=== PATIENT | female | born 1985 | race Caucasian/White ===

== ENCOUNTER 2017-06-06 18:02 | Emergency (ER) | payer SELFPAY ==
[~2017-06-06] VITALS: Ht 170.2 cm; Wt 104.3 kg
[~2017-06-06 18:02] MED LIST: ANXIETY MED PO; FERR325T58 PO; PARO20TA3 PO
[2017-06-06 19:05] VITALS: BP 154/85
[2017-06-06] MEDS ORDERED: NAPR500T8 PO (20:34)
[2017-06-06] MEDS ORDERED: PROAIR RESPICL90 MCG IH (20:34)
[2017-06-06] MEDS ORDERED: BENZ100C PO (20:34)
[2017-06-06] MEDS ORDERED: PRED50TA PO (20:34)
[2017-06-06] MEDS ORDERED: ACET-704 PO (20:34)
[2017-06-06] MEDS ORDERED: AMOX1TAB61 PO (20:34)
--- NOTE | 2017-06-06 20:34 | PHYS DOC ---
Past Medical History Past Medical History: Anxiety, Asthma, Depression, Other Additional Past Medical Histor: GESTATIONAL HYPERTENSION Past Surgical History: , Tonsillectomy Additional Past Surgical Histo: BILATERAL HIP SURGERY, left foot SX Alcohol Use: None Drug Use: None Adult General Chief Complaint Chief Complaint: SORE THROAT HPI HPI Patient is a 31 year old female with a history of anxiety asthma and depression who presents today with a productive cough, nasal congestion, sore throat, for 2 weeks. Patient denies any fever. Patient denies smoking. Review of Systems Review of Systems Constitutional:see HPI Eyes: Denies change in visual acuity, redness, or eye pain [] HENT: nasal congestion and sore throat [] Respiratory: cough Cardiovascular: No additional information not addressed in HPI [] GI: Denies abdominal pain, nausea, vomiting, bloody stools or diarrhea [] : Denies dysuria or hematuria [] Musculoskeletal: Denies back pain or joint pain [] Integument: Denies rash or skin lesions [] Neurologic: Denies headache, focal weakness or sensory changes [] Allergies Allergies Allergies Coded Allergies Type Severity Reaction Last Updated Verified iodine Allergy Intermediate swelling 11/02/15 Yes shellfish derived Allergy Intermediate swelling 11/02/15 Yes Physical Exam Physical Exam Constitutional: Well developed, well nourished, no acute distress, non-toxic appearance. [] HENT: Normocephalic, atraumatic, bilateral external ears normal, oropharynx moist, no oral exudates, patient is congested nasally. Bilateral nasal to venous erythematous and boggy. Eyes: PERRLA, EOMI, conjunctiva normal, no discharge. [] Neck: Normal range of motion, no tenderness, supple, no stridor. [] Cardiovascular:Heart rate regular rhythm, no murmur [] Lungs & Thorax: Bilateral breath sounds clear to auscultation [] Abdomen: Bowel sounds normal, soft, no tenderness, no masses, no pulsatile masses. [] Skin: Warm, dry, no erythema, no rash. [] Back: No tenderness, no CVA tenderness. [] Extremities: No tenderness, no cyanosis, no clubbing, ROM intact, no edema. [] Neurologic: Alert and oriented X 3, normal motor function, normal sensory function, no focal deficits noted. [] Psychologic: Affect normal, judgement normal, mood normal. [] Current Patient Data Vital Signs Vital Signs Date Time Temp Pulse Resp B/P (MAP) Pulse Ox O2 Delivery O2 Flow Rate FiO2 06/06/17 19:05 98.3 108 22 97 Room Air 98.3 EKG EKG [] Radiology/Procedures Radiology/Procedures [] Course & Med Decision Making Course & Med Decision Making Pertinent Labs and Imaging studies reviewed. (See chart for details) Patient has acute sinusitis, pharyngitis and bronchitis. Discharged with Augmentin, prednisone, albuterol inhaler, Tessalon Perles, naproxen and Tylenol 3. Follow-up with the PCP in 1-2 weeks. Dragon Disclaimer Dragon Disclaimer This electronic medical record was generated, in whole or in part, using a voice recognition dictation system. Departure Departure Impression: Primary Impression: Bronchitis, acute Additional Impressions: Sinusitis Pharyngitis, acute Disposition: 01 HOME, SELF-CARE Condition: STABLE Referrals: NIESHA CRANDALL (PCP) Follow-up with your doctor in 1-2 weeks Patient Instructions: Acute Bronchitis, Sinusitis, Viral and Bacterial Pharyngitis Additional Instructions: You were seen for acute sinusitis, pharyngitis and bronchitis. Complete your antibiotics. Take the rest of the prescribed medications as ordered Scripts Naproxen (NAPROXEN) 500 Mg Tablet.dr 1 TAB PO BID, #60 TAB 2 Refills Prov: BENTLEY DOUGHERTY APRN 06/06/17 Acetaminophen With Codeine (TYLENOL WITH CODEINE #3 TABLET) 1 Each Tablet 1 TAB PO PRN Q6HRS Y for PAIN, #20 TAB Prov: BENTLEY DOUGHERTY APRN 06/06/17 Prednisone (PREDNISONE) 50 Mg Tablet 1 TAB PO DAILY, #5 TAB Prov: BENTLEY DOUGHERTY APRN 06/06/17 Albuterol Sulfate (Proair Respiclick) 90 Mcg Aer.pow.ba 1 PUFF IH PRN Q6HRS Y for SHORTNESS OF BREATH, #1 INHALER Prov: BENTLEY DOUGHERTY APRN 06/06/17 Benzonatate (TESSALON PERLE) 100 Mg Capsule 1 CAP PO TID, #30 CAP Prov: BENTLEY DOUGHERTY APRN 06/06/17 Amoxicillin/Potassium Clav (AUGMENTIN 875-125 TABLET) 1 Each Tablet 1 TAB PO BID, #20 TAB Prov: BENTLEY DOUGHERTY APRN 06/06/17 Problem Qualifiers Primary Impression: Bronchitis, acute Bronchitis organism: unspecified organism Qualified Codes: J20.9 - Acute bronchitis, unspecified Additional Impressions: Sinusitis Sinusitis location: maxillary Chronicity: acute Recurrence: non-recurrent Qualified Codes: J01.00 - Acute maxillary sinusitis, unspecified Pharyngitis, acute Pharyngitis/tonsillitis etiology: unspecified etiology Qualified Codes: J02.9 - Acute pharyngitis, unspecified BENTLEY DOUGHERTY [employer] Jun 06, 2017 20:34
[2017-06-07 09:15] LABS: NEGATIVE OBC STREP NEG; POSITIVE OBC STREP POS
== END 2017-06-06 20:37 | disposition home or self-care (01) ==
LOC: ER 18:02
DX: J20.9 Acute bronchitis, unspecified (principal); J01.00 Acute maxillary sinusitis, unspecified; J45.909 Unspecified asthma, uncomplicated; F41.9 Anxiety disorder, unspecified; Z91.041 Radiographic dye allergy status; Z91.013 Allergy to seafood
CPT/HCPCS: 87070; 87880; 99283

== ENCOUNTER 2017-06-30 22:05 | Emergency (ER) | payer SELFPAY ==
[~2017-06-30 22:05] MED LIST changes: +ACET-704 PO; +AMOX1TAB61 PO; +BENZ100C PO; +NAPR500T8 PO; +PRED50TA PO; +PROAIR RESPICL90 MCG IH
[2017-06-30 22:10] VITALS: BP 178/97
[2017-06-30] MEDS ORDERED: AMOX500T PO (22:28)
[2017-06-30] MEDS ORDERED: DICL50TA4 PO (22:28)
[2017-06-30] MEDS ORDERED: ACET-704 PO (22:28)
--- NOTE | 2017-06-30 22:28 | PHYS DOC ---
Past Medical History Past Medical History: Anxiety, Asthma, Depression, Other Additional Past Medical Histor: GESTATIONAL HYPERTENSION Past Surgical History: , Tonsillectomy Additional Past Surgical Histo: BILATERAL HIP SURGERY, left foot SX Alcohol Use: None Drug Use: None Adult General Chief Complaint Chief Complaint: TOOTH ACHE OR PAIN HPI HPI Patient is a 31 year old female who presents with left upper jaw dental pain that began 3 days ago after she broke her tooth. Patient states she called her dentist and she cannot get in for 1 month. Patient denies any fever. Review of Systems Review of Systems Constitutional: Denies fever or chills [] HENT: left upper jaw dental pain Musculoskeletal: Denies back pain or joint pain [] Integument: Denies rash or skin lesions [] Neurologic: Denies headache, focal weakness or sensory changes [] Current Medications Current Medications Current Medications Medications (Trade) Dose Ordered Sig/Elaina Start Time Stop Time Status Last Admin Dose Admin Morphine Sulfate 5 mg 1X ONCE 06/30/17 23:00 06/30/17 23:01 06/30/17 22:32 5 MG Allergies Allergies Allergies Coded Allergies Type Severity Reaction Last Updated Verified iodine Allergy Intermediate swelling 11/02/15 Yes shellfish derived Allergy Intermediate swelling 11/02/15 Yes Physical Exam Physical Exam Constitutional: Well developed, well nourished, no acute distress, non-toxic appearance. [] HENT: Normocephalic, atraumatic, bilateral external ears normal, oropharynx moist, no oral exudates, nose normal. [] Scattered infected dental caries noted throughout. Tooth of concern approximately #17 is broken and decayed. No gum erythema or swelling. Skin: Warm, dry, no erythema, no rash. [] Back: No tenderness, no CVA tenderness. [] Extremities: No tenderness, no cyanosis, no clubbing, ROM intact, no edema. [] Neurologic: Alert and oriented X 3, normal motor function, normal sensory function, no focal deficits noted. [] Psychologic: Affect normal, judgement normal, mood normal. [] Current Patient Data Vital Signs Vital Signs Date Time Temp Pulse Resp B/P (MAP) Pulse Ox O2 Delivery O2 Flow Rate FiO2 06/30/17 22:32 Room Air 06/30/17 22:10 98.5 77 20 99 98.5 EKG EKG [] Radiology/Procedures Radiology/Procedures [] Course & Med Decision Making Course & Med Decision Making Pertinent Labs and Imaging studies reviewed. (See chart for details) Patient has infected dental caries. Discharged with amoxicillin and Tylenol 3 and diclofenac. She states she has an appointment with her dentist in 1 month. Kayleeon Disclaimer Dragon Disclaimer This electronic medical record was generated, in whole or in part, using a voice recognition dictation system. Departure Departure Impression: Primary Impression: Dentalgia Additional Impression: Infected dental caries Disposition: 01 HOME, SELF-CARE Condition: STABLE Referrals: NIESHA CRANDALL (PCP) follow up with your dentist in one week Patient Instructions: Dental Caries Additional Instructions: complete your antibiotics and follow up with your dentist. Scripts Diclofenac Sodium (DICLOFENAC SODIUM) 50 Mg Tablet. 1 TAB PO BID, #30 TAB 1 Refill Prov: BENTLEY DOUGHERTY APRN 06/30/17 Acetaminophen With Codeine (TYLENOL WITH CODEINE #3 TABLET) 1 Each Tablet 1 TAB PO PRN Q6HRS Y for PAIN, #30 TAB Prov: BENTLEY DOUGHERTY APRN 06/30/17 Amoxicillin (AMOXICILLIN) 500 Mg Tablet 1 TAB PO TID, #30 TAB Prov: BENTLEY DOUGHERTY APRN 06/30/17 Problem Qualifiers BENTLEY DOUGHERTY APRN Jun 30, 2017 22:28
[2017-06-30] MEDS ORDERED: MORPHINE SULFATE 10 MG/ML VIAL. IM ONE (23:00)
== END 2017-06-30 22:35 | disposition home or self-care (01) ==
LOC: ER 22:05
DX: K04.7 Periapical abscess without sinus (principal); K02.9 Dental caries, unspecified; J45.909 Unspecified asthma, uncomplicated; F41.9 Anxiety disorder, unspecified; F32.9 Major depressive disorder, single episode, unspecified; Z88.8 Allergy status to other drugs, medicaments and biological substances; Z91.013 Allergy to seafood
CPT/HCPCS: 96372; 99283; J2270

== ENCOUNTER 2017-09-13 07:08 | Emergency (ER) | payer SELFPAY ==
[~2017-09-13] VITALS: Ht 170.2 cm; Wt 104.3 kg
[~2017-09-13 07:08] MED LIST changes: +AMOX500T PO; +DICL50TA4 PO
[2017-09-13 07:25] VITALS: BP 154/77
--- NOTE | 2017-09-13 07:56 | PHYS DOC ---
Past Medical History Past Medical History: Anxiety, Asthma, Depression, Other Additional Past Medical Histor: GESTATIONAL HYPERTENSION Past Surgical History: , Tonsillectomy Additional Past Surgical Histo: BILATERAL HIP SURGERY, left foot SX Alcohol Use: None Drug Use: Marijuana Adult General Chief Complaint Chief Complaint: OTHER COMPLAINTS [facility] HPI Patient is a 32 year old female with history of anxiety, asthma, depression, who presents today with bilateral hands sharp pain rated at 6 out of 10, patient is also complaining of numbness and tingling to the hands for the last 6 weeks. Patient denies any known injury. Denies any neck pain but states a couple weeks ago she had a knot on her left lateral neck that has disappeared. Patient states the pain is worse early in the morning. Review of Systems Review of Systems Constitutional: Denies fever or chills [] Eyes: Denies change in visual acuity, redness, or eye pain [] HENT: Denies nasal congestion or sore throat [] Respiratory: Denies cough or shortness of breath [] Cardiovascular: No additional information not addressed in HPI [] GI: Denies abdominal pain, nausea, vomiting, bloody stools or diarrhea [] : Denies dysuria or hematuria [] Musculoskeletal: Bilateral hand pain with numbness and tingling. Integument: Denies rash or skin lesions [] Neurologic: Denies headache, focal weakness or sensory changes [] All other systems were reviewed and found to be within normal limits, except as documented in this note. Allergies Allergies Allergies Coded Allergies Type Severity Reaction Last Updated Verified iodine Allergy Intermediate swelling 11/02/15 Yes shellfish derived Allergy Intermediate swelling 11/02/15 Yes Physical Exam Physical Exam Constitutional: Well developed, well nourished, no acute distress, non-toxic appearance. [] HENT: Normocephalic, atraumatic, bilateral external ears normal, oropharynx moist, no oral exudates, nose normal. [] Eyes: PERRLA, EOMI, conjunctiva normal, no discharge. [] Neck: Normal range of motion, no tenderness, supple, no stridor. [] Cardiovascular:Heart rate regular rhythm, no murmur [] Lungs & Thorax: Bilateral breath sounds clear to auscultation [] Abdomen: Bowel sounds normal, soft, no tenderness, no masses, no pulsatile masses. [] Skin: Warm, dry, no erythema, no rash. [] Back: No tenderness, no CVA tenderness. [] Extremities: Bilateral hands with no obvious deformity. Obvious swelling. No tenderness on exam. Full range of motion to bilateral hands and fingers. +2 bilateral radial pulses. Adequate radial medial and ulnar sensation to bilateral hands. Cap refill less than 2 seconds bilateral fingers. Neurologic: Alert and oriented X 3, normal motor function, normal sensory function, no focal deficits noted. [] Psychologic: Affect normal, judgement normal, mood normal. [] Current Patient Data Vital Signs Vital Signs Date Time Temp Pulse Resp B/P (MAP) Pulse Ox O2 Delivery O2 Flow Rate FiO2 09/13/17 07:25 98.0 69 20 98 Room Air 98.0 EKG EKG [] Radiology/Procedures Radiology/Procedures []PROCEDURE: CERVICAL SPINE 2-3V Cervical spine, 2 views, 09/13/2017: History: Hand numbness and tingling There is straightening of the normal cervical lordosis. There are small bilateral cervical ribs at C7. No fracture or dislocation is identified. No destructive bony lesion is seen. The intervertebral disc spaces are well preserved. The prevertebral soft tissues are unremarkable. IMPRESSION: 1. Straightening of the normal cervical lordosis. 2. No acute bony abnormality is detected. DICTATED and SIGNED BY: TUAN LARA MD DATE: 09/13/17 0804 CC: NIESHA CRANDALL; BENTLEY DOUGHERTY APRN; NON,STAFF ~ Course & Med Decision Making Course & Med Decision Making Pertinent Labs and Imaging studies reviewed. (See chart for details) Patient is in the ED with bilateral hand pain and numbness and tingling for 6 weeks with no known injury. Cervical spine x-rays are negative for any acute findings. Patient has paresthesia is to bilateral upper extremities. Recommended elevating the extremity is provided a Velcro splint bilateral upper extremities. Discharged with gabapentin and diclofenac. Follow-up with PCP orthopedic doctor provided in 1-2 weeks. Dragon Disclaimer Dragon Disclaimer This electronic medical record was generated, in whole or in part, using a voice recognition dictation system. Departure Departure Impression: Primary Impression: Paresthesia of both hands Disposition: 01 HOME, SELF-CARE Condition: STABLE Referrals: NIESHA CRANDALL (PCP) TAM MESA MD follow up with the orthopedic doctor and your primary care doctor next week Patient Instructions: Paresthesia, [id number] Additional Instructions: You were seen with paresthesia of bilateral hands. Ice elevate the extremities. Wear the Velcro splints provided as needed. Use the prescribed medications as ordered. Scripts Diclofenac Sodium (DICLOFENAC SODIUM) 50 Mg Tablet.dr 1 TAB PO BID, #30 TAB 0 Refills Prov: BENTLEY DOUGHERTY APRN 09/13/17 Gabapentin (GABAPENTIN) 300 Mg Capsule 300 MG PO TID, #30 CAP Prov: BENTLEY DOUGHERTY APRN 09/13/17 BENTLEY DOUGHERTY APRN Sep 13, 2017 07:56
--- NOTE | 2017-09-13 08:10 | RAD ---
Cervical spine, 2 views, 09/13/2017: History: Hand numbness and tingling There is straightening of the normal cervical lordosis. There are small bilateral cervical ribs at C7. No fracture or dislocation is identified. No destructive bony lesion is seen. The intervertebral disc spaces are well preserved. The prevertebral soft tissues are unremarkable. IMPRESSION: 1. Straightening of the normal cervical lordosis. 2. No acute bony abnormality is detected.
[2017-09-13] MEDS ORDERED: GABA-586 PO (08:38)
[2017-09-13] MEDS ORDERED: DICL50TA4 PO (08:38)
== END 2017-09-13 08:45 | disposition home or self-care (01) ==
LOC: ER 07:08
DX: R20.2 Paresthesia of skin (principal); M79.641 Pain in right hand; J45.909 Unspecified asthma, uncomplicated; F41.9 Anxiety disorder, unspecified; F32.9 Major depressive disorder, single episode, unspecified; F12.10 Cannabis abuse, uncomplicated; Z91.041 Radiographic dye allergy status; Z91.013 Allergy to seafood
CPT/HCPCS: 29125; 72040; 99284-25

== ENCOUNTER 2018-02-06 15:26 | Emergency (ER) | payer OTHER ==
[2018-02-06] MEDS: silver sulfADIAZINE 1% CREAM 25GM TUBE. TP (16:45)
== END 2018-02-06 16:48 | disposition home or self-care (01) ==
LOC: ER 15:26
DX: T22.211A Burn of second degree of right forearm, initial encounter (principal); J45.909 Unspecified asthma, uncomplicated; Z91.041 Radiographic dye allergy status; Z91.013 Allergy to seafood; F12.10 Cannabis abuse, uncomplicated; X13.1XXA Other contact with steam and other hot vapors, initial encounter; Y93.89 Activity, other specified; Y99.8 Other external cause status; Y92.89 Other specified places as the place of occurrence of the external cause
CPT/HCPCS: 16020; 99284-25

== ENCOUNTER 2018-11-10 10:42 | Emergency (ER) | payer SELFPAY ==
[~2018-11-10] VITALS: Ht 170.2 cm; Wt 101.2 kg
[~2018-11-10 10:42] MED LIST changes: +GABA300C18 PO; +SILV20CR14 TP; +SULF1TAB24 PO
[2018-11-10 10:59] VITALS: BP 157/76
--- NOTE | 2018-11-10 11:48 | PHYS DOC ---
Past Medical History Past Medical History: Anxiety, Asthma, Depression, Other Additional Past Medical Histor: GESTATIONAL HYPERTENSION Past Surgical History: , Tonsillectomy Additional Past Surgical Histo: BILATERAL HIP SURGERY, left foot SX Alcohol Use: None Drug Use: Marijuana Adult General Chief Complaint Chief Complaint: SHOULDER INJURY HPI HPI Patient is a 33 year old female presents for evaluation of right humerus pain. She reports yesterday he had a slip and fall ground-level on the ice, landed on the right arm. She states hurts worse today than it did yesterday. She denies other injuries. Denies loss of consciousness or hitting her head. Review of Systems Review of Systems Constitutional: Denies fever or chills [] Eyes: Denies change in visual acuity, redness, or eye pain [] HENT: Denies nasal congestion or sore throat [] Respiratory: Denies cough or shortness of breath [] Cardiovascular: No additional information not addressed in HPI [] GI: Denies abdominal pain, nausea, vomiting, bloody stools or diarrhea [] : Denies dysuria or hematuria [] Musculoskeletal: Reports right arm pain[] Integument: Denies rash or skin lesions [] Neurologic: Denies headache, focal weakness or sensory changes [] Endocrine: Denies polyuria or polydipsia [] All other systems were reviewed and found to be within normal limits, except as documented in this note. Allergies Allergies Allergies Coded Allergies Type Severity Reaction Last Updated Verified iodine Allergy Intermediate swelling 11/02/15 Yes shellfish derived Allergy Intermediate swelling 11/02/15 Yes Physical Exam Physical Exam Constitutional: Well developed, well nourished, no acute distress, non-toxic appearance. [] Neck: Normal range of motion, no tenderness, supple, no stridor. [] Cardiovascular:Heart rate regular rhythm, no murmur [] Lungs & Thorax: Bilateral breath sounds clear to auscultation [] Skin: Warm, dry, no erythema, no rash. [] Back: No tenderness, no CVA tenderness. [] Extremities: Tenderness to palpation right proximal humerus, painful range of motion, pulses equal and intact Neurologic: Alert and oriented X 3, normal motor function, normal sensory function, no focal deficits noted. [] Psychologic: Affect normal, judgement normal, mood normal. [] Current Patient Data Vital Signs Vital Signs Date Time Temp Pulse Resp B/P (MAP) Pulse Ox O2 Delivery O2 Flow Rate FiO2 11/10/18 10:59 98.4 79 18 157/76 (103) 99 Room Air 98.4 EKG EKG [] Radiology/Procedures Radiology/Procedures [REASON: FALL ON ICE PROCEDURE: HUMERUS RIGHT 2 view study of the right humerus Clinical indications: Fell on ice. Upper arm pain. FINDINGS: No acute fracture or dislocation or osteolytic process is seen. IMPRESSION: No acute fracture. Electronically signed by: Arjun Padron MD (11/10/2018 11:55 AM) [facility] ] Course & Med Decision Making Course & Med Decision Making Pertinent Labs and Imaging studies reviewed. (See chart for details) [During the right humerus is negative, recommend follow-up with primary care doctor 2-3 days. The extremity is neurovascularly intact, patient is stable for discharge home. [id number] ibuprofen or Tylenol for discomfort, ice the area.] Dragon Disclaimer Dragon Disclaimer This electronic medical record was generated, in whole or in part, using a voice recognition dictation system. Departure Departure Impression: Primary Impression: Contusion Disposition: 01 HOME, SELF-CARE Condition: STABLE Referrals: INESHA CRANDALL (PCP) Patient Instructions: Contusion, [id number] KWABENA PHILIP APRN Nov 10, 2018 11:48
--- NOTE | 2018-11-10 11:59 | RAD ---
2 view study of the right humerus Clinical indications: Fell on ice. Upper arm pain. FINDINGS: No acute fracture or dislocation or osteolytic process is seen. IMPRESSION: No acute fracture. Electronically signed by: Arjun Padron MD (11/10/2018 11:55 AM) [facility]
== END 2018-11-10 12:28 | disposition home or self-care (01) ==
LOC: ER 10:42
DX: S60.221A Contusion of right hand, initial encounter (principal); F41.9 Anxiety disorder, unspecified; F32.9 Major depressive disorder, single episode, unspecified; J45.909 Unspecified asthma, uncomplicated; Z98.890 Other specified postprocedural states; Z90.89 Acquired absence of other organs; Z91.041 Radiographic dye allergy status; Z91.013 Allergy to seafood; W00.0XXA Fall on same level due to ice and snow, initial encounter; Y93.89 Activity, other specified; Y92.89 Other specified places as the place of occurrence of the external cause; Y99.8 Other external cause status
CPT/HCPCS: 73060; 99283

== ENCOUNTER 2018-11-24 06:33 | Emergency (ER) | payer SELFPAY ==
[~2018-11-24] VITALS: Ht 170.2 cm; Wt 102.1 kg
--- NOTE | 2018-11-24 06:58 | PHYS DOC ---
Past Medical History Past Medical History: Anxiety, Asthma, Depression, Other Additional Past Medical Histor: GESTATIONAL HYPERTENSION Past Surgical History: , Tonsillectomy Additional Past Surgical Histo: BILATERAL HIP SURGERY, left foot SX Alcohol Use: None Drug Use: Marijuana Adult General Chief Complaint Chief Complaint: UPPER EXTREMITY INJURY [facility] HPI Patient is a 33-year-old female who presents with complaint of right shoulder pain after injuring her shoulder couple of weeks ago. Patient states that she had fallen outside and states that she knocked her self out at that time. She states that her significant other and found her outside. She denies recalling specifics of the injury but states that she has had right shoulder pain ever since. 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 She states that she has difficulty in raising her arm up to shoulder level. She indicates the pain worsens with use. Review of Systems Review of Systems Constitutional: Denies fever or chills [] Respiratory: Denies cough or shortness of breath [] Cardiovascular: No additional information not addressed in HPI [] Musculoskeletal: Complains of right shoulder and upper arm pain [] Current Medications Current Medications Current Medications Medications (Trade) Dose Ordered Sig/Elaina Start Time Stop Time Status Last Admin Dose Admin Acetaminophen/ Hydrocodone Bitart (Lortab 5/325) 1 tab 1X ONCE 11/24/18 08:00 11/24/18 08:01 11/24/18 07:53 1 TAB Allergies Allergies Allergies Coded Allergies Type Severity Reaction Last Updated Verified iodine Allergy Intermediate swelling 11/02/15 Yes shellfish derived Allergy Intermediate swelling 11/02/15 Yes Physical Exam Physical Exam Constitutional: Well developed, well nourished, no acute distress, non-toxic appearance. [] Neck: Normal range of motion, no tenderness, supple, no stridor. [] Cardiovascular: Regular rate and rhythm [] Lungs & Thorax: Bilateral breath sounds clear to auscultation [] Extremities: Examination of right shoulder demonstrates tenderness to palpation around the area of supraspinatus muscle as well as tenderness over the area of superior labrum. There is significant reduction in range of motion especially with flexion and abduction due to pain, limiting full ligamentous testing. Exam performed is suggestive of supraspinatus injury. [] Current Patient Data Vital Signs Vital Signs Date Time Temp Pulse Resp B/P (MAP) Pulse Ox O2 Delivery O2 Flow Rate FiO2 11/24/18 07:53 18 98 Room Air 11/24/18 06:34 97.9 69 150/67 (94) 97.9 Lab Values Laboratory Tests Test 11/24/18 06:53 POC Urine HCG, Qualitative Hcg negative (Negative) EKG EKG [] Radiology/Procedures Radiology/Procedures [] Course & Med Decision Making Course & Med Decision Making Pertinent Labs and Imaging studies reviewed. (See chart for details) [] Dragon Disclaimer Dragon Disclaimer This electronic medical record was generated, in whole or in part, using a voice recognition dictation system. Departure Departure Impression: Primary Impression: Rotator cuff injury Disposition: HOME, SELF-CARE Condition: STABLE Referrals: NIESHA CRANDALL (PCP) TAM MESA MD Patient Instructions: Rotator Cuff Injury Scripts Indomethacin (INDOMETHACIN) 50 Mg Capsule 1 CAP PO TID PRN for PAIN, #30 CAP Prov: SUPA GONZALEZ Jr. DO 11/24/18 Hydrocodone/Apap 5-325 (NORCO 5-325 TABLET) 1 Each Tablet 1 EACH PO PRN Q6HRS PRN for PAIN, #15 as needed for pain Prov: SUPA GONZALEZ Jr. DO 11/24/18 Problem Qualifiers Primary Impression: Rotator cuff injury Encounter type: subsequent encounter Laterality: right Qualified Codes: S46.001D - Unspecified injury of muscle(s) and tendon(s) of the rotator cuff of right shoulder, subsequent encounter SUPA GONZALEZ Jr. DO Nov 24, 2018 06:58
[2018-11-24] MEDS ORDERED: HYDROcodone/APAP 5/325MG 1 TAB TABLET PO ONE (08:00)
[2018-11-24] MEDS ORDERED: HYDR-3164 PO (08:07)
[2018-11-24] MEDS ORDERED: INDO50CA5 PO (08:07)
[2018-11-24 08:27] VITALS: BP 143/70
--- NOTE | 2018-11-24 09:49 | RAD ---
SHOULDER 2+V RIGHT History: Shoulder pain for 2 weeks after a fall. FINDINGS: No evidence of an acute fracture. No bone destruction. Alignment and joint spaces are intact. IMPRESSION: No evidence of acute fracture or dislocation. Electronically signed by: Satya Soni MD (11/24/2018 9:45 AM) [facility]
== END 2018-11-24 08:30 | disposition home or self-care (01) ==
LOC: ER 06:33
DX: S46.091D Other injury of muscle(s) and tendon(s) of the rotator cuff of right shoulder, subsequent encounter (principal); F41.9 Anxiety disorder, unspecified; J45.909 Unspecified asthma, uncomplicated; F32.9 Major depressive disorder, single episode, unspecified; Z98.890 Other specified postprocedural states; Z90.89 Acquired absence of other organs; Z91.041 Radiographic dye allergy status; Z91.013 Allergy to seafood; W18.39XD Other fall on same level, subsequent encounter
CPT/HCPCS: 73030; 81025; 99284

== ENCOUNTER 2019-02-25 04:20 | Emergency (ER) | payer SELFPAY ==
[~2019-02-25] VITALS: Ht 170.2 cm; Wt 108.9 kg
[~2019-02-25 04:20] MED LIST changes: +HYDR-3164 PO; +INDO50CA5 PO
[2019-02-25 04:24] VITALS: BP 130/66
[2019-02-25] MEDS ORDERED: POLY10DR EACHEYE (04:46)
--- NOTE | 2019-02-25 05:14 | PHYS DOC ---
Past Medical History Past Medical History: Asthma, Hypertension Additional Past Medical Histor: GESTATIONAL HYPERTENSION Past Surgical History: , Tonsillectomy Additional Past Surgical Histo: HIP SURG X 2, FINGER SURG, LEFT FOOT X 2 Alcohol Use: None Drug Use: None Adult General Chief Complaint Chief Complaint: Congestion HPI HPI Patient is a 33 year old female presenting with cough congestion 3 days noticed some crustiness of the eyes or sore throat for the last 3 days overall. Review of Systems Review of Systems Constitutional: Chills Respiratory: Mild cough Cardiovascular: No additional information not addressed in HPI [] GI: Denies abdominal pain, nausea, vomiting, bloody stools or diarrhea [] Integument: Denies rash or skin lesions [] Neurologic: Denies headache, focal weakness or sensory changes [] Endocrine: Denies polyuria or polydipsia [] All other systems were reviewed and found to be within normal limits, except as documented in this note. Allergies Allergies Allergies Coded Allergies Type Severity Reaction Last Updated Verified iodine Allergy Intermediate swelling 11/02/15 Yes shellfish derived Allergy Intermediate swelling 11/02/15 Yes Physical Exam Physical Exam Constitutional: Well developed, well nourished, no acute distress, non-toxic appearance. [] HENT: Normocephalic, atraumatic, bilateral external ears normal, oropharynx moist, no oral exudates, nose normal. [] Eyes: PERRLA, EOMI, conjunctiva injected left greater than right with crustiness noted Neck: Normal range of motion, no tenderness, supple, no stridor. [] Cardiovascular:Heart rate regular rhythm, no murmur [] Lungs & Thorax: Bilateral breath sounds clear to auscultation [] Abdomen: Bowel sounds normal, soft, no tenderness, no masses, no pulsatile masses. [] Skin: Warm, dry, no erythema, no rash. [] Back: No tenderness, no CVA tenderness. [] Extremities: No tenderness, no cyanosis, no clubbing, ROM intact, no edema. [] Neurologic: Alert and oriented X 3, normal motor function, normal sensory function, no focal deficits noted. [] Psychologic: Affect normal, judgement normal, mood normal. [] Current Patient Data Vital Signs Vital Signs Date Time Temp Pulse Resp B/P (MAP) Pulse Ox O2 Delivery O2 Flow Rate FiO2 02/25/19 04:24 98.2 87 16 130/66 (87) 98 Room Air 98.2 EKG EKG [] Radiology/Procedures Radiology/Procedures [] Course & Med Decision Making Course & Med Decision Making Pertinent Labs and Imaging studies reviewed. (See chart for details) []Rapid strep negative noted exam consistent with conjunctivitis left greater than right eye there is some crustiness I think she warrants antibiotics and topical Polytrim. Bedside ultrasound did show good heart movement as well as good heart rate in the 130s patient no symptoms referrable to that area anyway Dragon Disclaimer Dragon Disclaimer This electronic medical record was generated, in whole or in part, using a voice recognition dictation system. Departure Departure Impression: Primary Impression: Conjunctivitis Disposition: 01 HOME, SELF-CARE Condition: STABLE Referrals: NIESHA CRANDALL (PCP) Patient Instructions: Conjunctivitis (Viral and Bacterial) Scripts Polymyxin B Sulf/Trimethoprim (POLYTRIM EYE DROPS) 10 Ml Drops 1 DROP EACHEYE Q6HRS for 5 Days, #10 ML Prov: LUIS E SHER MD 02/25/19 LUIS E SHER MD February 25, 2019 05:14
== END 2019-02-25 05:15 | disposition home or self-care (01) ==
LOC: ER 04:20
DX: H10.9 Unspecified conjunctivitis (principal); J02.9 Acute pharyngitis, unspecified; J45.909 Unspecified asthma, uncomplicated; I10 Essential (primary) hypertension; Z88.8 Allergy status to other drugs, medicaments and biological substances; Z91.013 Allergy to seafood
CPT/HCPCS: 87070; 87880; 99283

== ENCOUNTER 2019-03-05 21:22 | Emergency (ER) | payer MEDICAID, SELFPAY ==
[~2019-03-05] VITALS: Ht 170.2 cm; Wt 113.4 kg
[~2019-03-05 21:22] MED LIST changes: +POLY10DR EACHEYE
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
[2019-03-05 22:22] LABS: BILIRUBIN,URINE NEGATIVE (NEG); CLARITY,URINE CLEAR; COLOR,URINE YELLOW; NITRITE,URINE NEGATIVE (NEG); PROTEIN,URINE NEGATIVE (NEG-TRACE)
[2019-03-05 22:27] LABS: SQUAMOUS EPITHELIAL CELL,UR MANY /LPF
[2019-03-05 22:28] LABS: BACTERIA,URINE FEW /HPF (0-FEW); RBC,URINE TNTC /HPF (0-2)
[2019-03-05] MEDS ORDERED: ONDANSETRON PF 4 MG/2 ML VIAL. IV ONE (22:30)
[2019-03-05] MEDS ORDERED: IV NORMAL SALINE 1000ML BAG 1,000 ML IV ONE (22:30)
[2019-03-05 22:38] LABS: BASO % 0 % (0-3); EOS # 0.1 x10^3/uL (0.0-0.7); EOS % 1 % (0-3); HEMATOCRIT 35.2 % (36.0-47.0); HEMOGLOBIN 11.4 g/dL (12.0-15.5); LYMPH # 2.2 x10^3/uL (1.0-4.8); LYMPH % 20 % (24-48); MEAN CORPUSCULAR HEMOGLOBIN 24 pg (25-35); MEAN CORPUSCULAR HGB CONC 32 g/dL (31-37); MEAN CORPUSCULAR VOLUME 72 fL (79-100); MONO # 0.8 x10^3/uL (0.0-1.1); MONO % 7 % (0-9); NEUT # 7.8 x10^3uL (1.8-7.7); NEUT % 71 % (31-73); PLATELET COUNT 245 x10^3/uL (140-400); RED BLOOD COUNT 4.86 x10^6/uL (3.50-5.40); RED CELL DISTRIBUTION WIDTH 16.9 % (11.5-14.5); WHITE BLOOD COUNT 10.9 x10^3/uL (4.0-11.0)
[2019-03-05 23:21] LABS: CALCIUM 9.3 mg/dL (8.5-10.1); CREATININE 0.6 mg/dL (0.6-1.0); GFR 116.6
[2019-03-05 23:27] LABS: ALBUMIN 3.2 g/dL (3.4-5.0); ALBUMIN/GLOBULIN RATIO 0.8 (1.0-1.7); TOTAL BILIRUBIN 0.2 mg/dL (0.2-1.0); TOTAL PROTEIN 7.3 g/dL (6.4-8.2)
[2019-03-06 01:11] VITALS: BP 115/63
--- NOTE | 2019-03-06 01:36 | RAD ---
Obstetrical ultrasound greater than 14 weeks. HISTORY: Abdominal pain Transabdominal obstetrical ultrasound was performed. There is an intrauterine gestation. Placenta is posterior without previa. There is a normal amount of amniotic fluid. survey was not performed. movement was noted. Cardiac activity was noted with a rate of 152 bpm. Maternal right ovary appeared normal measuring 3.6 x 2.8 x 3.1 cm. There is flow in the right ovary with color imaging and Doppler. Left ovary was not well visualized. Fetus was in cephalic position. Biparietal diameter 2.7 cm corresponding to 14 weeks 6 days, head circumference of 10 cm corresponding to 14 weeks 5 days, abdominal circumference of 7.7 cm corresponding to 14 weeks 1 day, femur length of 1.7 cm corresponding to 15 weeks. Estimated gestational age by ultrasound 14 weeks 5 days with an estimated date of delivery of 08/30/2019. IMPRESSION: 1. Viable fetus 14 weeks 5 days gestational age by ultrasound. Electronically signed by: Bhanu Arroyo MD (03/06/2019 1:33 AM) [facility]
== END 2019-03-06 01:45 | disposition home or self-care (01) ==
LOC: ER 21:22
DX: O99.89 Other specified diseases and conditions complicating pregnancy, childbirth and the puerperium (principal); R10.32 Left lower quadrant pain; O99.342 Other mental disorders complicating pregnancy, second trimester; F41.8 Other specified anxiety disorders; O99.512 Diseases of the respiratory system complicating pregnancy, second trimester; J45.909 Unspecified asthma, uncomplicated; O16.2 Unspecified maternal hypertension, second trimester; Z98.890 Other specified postprocedural states; Z90.89 Acquired absence of other organs; Z91.041 Radiographic dye allergy status; Z91.013 Allergy to seafood; Z3A.14 14 weeks gestation of pregnancy
CPT/HCPCS: 36415; 76805; 80053; 81001; 84702; 85025; 87086; 96374; 99285; J2405; J7030

== ENCOUNTER 2019-05-22 01:44 | Observation (INO) | payer MEDICAID ==
[2019-05-22] MEDS ORDERED: IV RINGERS,LACTATED 1000ML 1,000 ML IV SCH (02:00)
[2019-05-22 03:08] LABS: BILIRUBIN,URINE NEGATIVE (NEG); CLARITY,URINE CLEAR; COLOR,URINE YELLOW; NITRITE,URINE NEGATIVE (NEG); PROTEIN,URINE NEGATIVE (NEG-TRACE); UROBILINOGEN,URINE 0.2 mg/dL (0.2 mg/dL)
[2019-05-22 03:16] LABS: BARBITURATES NEG (NEG); BENZODIAZEPINES NEG (NEG); CANNABINOIDS POS (NEG); COCAINE NEG (NEG); METHADONE NEG (NEG); OPIATES NEG (NEG); PHENCYCLIDINE NEG (NEG)
[2019-05-22 03:19] LABS: AMPHETAMINE/METHAMPHETAMINE NEG (NEG)
[2019-05-22 03:25] LABS: SQUAMOUS EPITHELIAL CELL,UR FEW /LPF
[2019-05-22 03:30] LABS: BACTERIA,URINE 0 /HPF (0-FEW); RBC,URINE 20-40 /HPF (0-2)
== END 2019-05-22 03:45 | disposition home or self-care (01) ==
LOC: 3 SO LND 01:44
PROVIDERS: ADMIT Obstetrics & Gynecology; ATTEND Obstetrics & Gynecology
DX: O46.92 Antepartum hemorrhage, unspecified, second trimester (principal); Z3A.25 25 weeks gestation of pregnancy
CPT/HCPCS: 80307; 81001; 87086; G0378; G0379

== ENCOUNTER 2019-05-31 20:16 | Observation (INO) | payer MEDICAID ==
[2019-05-31] MEDS ORDERED: IV RINGERS,LACTATED 1000ML 1,000 ML IV SCH (20:38)
[2019-05-31] MEDS ORDERED: ACETAMINOPHEN 500 MG TABLET PO PRN (20:45)
[2019-05-31 21:00] LABS: BILIRUBIN,URINE NEGATIVE (NEG); CLARITY,URINE CLEAR; COLOR,URINE YELLOW; NITRITE,URINE NEGATIVE (NEG); PROTEIN,URINE NEGATIVE (NEG-TRACE); UROBILINOGEN,URINE 0.2 mg/dL (0.2 mg/dL)
[2019-05-31 21:06] LABS: BARBITURATES NEG (NEG); BENZODIAZEPINES NEG (NEG); CANNABINOIDS POS (NEG); COCAINE NEG (NEG); METHADONE NEG (NEG); OPIATES NEG (NEG); PHENCYCLIDINE NEG (NEG)
[2019-05-31 21:10] LABS: AMPHETAMINE/METHAMPHETAMINE NEG (NEG)
[2019-05-31 21:11] LABS: BACTERIA,URINE MANY /HPF (0-FEW); RBC,URINE >40 /HPF (0-2); SQUAMOUS EPITHELIAL CELL,UR MOD /LPF
== END 2019-05-31 22:00 | disposition home or self-care (01) ==
LOC: 3 SO LND 20:16
PROVIDERS: ADMIT Obstetrics & Gynecology; ATTEND Obstetrics & Gynecology
DX: O62.9 Abnormality of forces of labor, unspecified (principal); Z3A.27 27 weeks gestation of pregnancy
CPT/HCPCS: 80307; 81001; 87086; G0378; G0379

== ENCOUNTER 2019-06-15 20:13 | Emergency (ER) | payer MEDICAID ==
[~2019-06-15] VITALS: Ht 172.7 cm; Wt 113.4 kg
[~2019-06-15 20:13] MED LIST changes: +INDO50CA15 PO; -INDO50CA5 PO
[2019-06-15 20:25] VITALS: BP 147/74
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
[2019-06-15] MEDS ORDERED: ACETAMINOPHEN 500 MG TABLET PO ONE (21:30)
== END 2019-06-15 21:13 | disposition home or self-care (01) ==
LOC: ER 20:13
DX: O9A.313 Physical abuse complicating pregnancy, third trimester (principal); S10.93XA Contusion of unspecified part of neck, initial encounter; O99.343 Other mental disorders complicating pregnancy, third trimester; F41.9 Anxiety disorder, unspecified; O99.513 Diseases of the respiratory system complicating pregnancy, third trimester; J45.909 Unspecified asthma, uncomplicated; O16.3 Unspecified maternal hypertension, third trimester; Z88.8 Allergy status to other drugs, medicaments and biological substances; Z91.013 Allergy to seafood; Y04.2XXA Assault by strike against or bumped into by another person, initial encounter; Y93.89 Activity, other specified; Y92.89 Other specified places as the place of occurrence of the external cause; Y99.8 Other external cause status
CPT/HCPCS: 99284

== ENCOUNTER 2019-12-15 17:24 | Emergency (ER) | payer SELFPAY ==
[~2019-12-15] VITALS: Ht 170.2 cm; Wt 117.1 kg
--- NOTE | 2019-12-15 18:10 | PHYS DOC ---
Past Medical History Past Medical History: Anxiety, Asthma, Bipolar, Depression, Hypertension Additional Past Medical Histor: GESTATIONAL HYPERTENSION, "CANCER IN LEFT EYE" Past Surgical History: , Tonsillectomy Additional Past Surgical Histo: HIP SURG X 2, FINGER SURG, LEFT FOOT X 2 Smoking Status: Former Smoker Alcohol Use: None Drug Use: None Adult General Chief Complaint Chief Complaint: NAUSEA/VOMITING/DIARRHA HPI HPI Patient is a 34 year old female who presents with + she's had nausea, vomiting, diarrhea. She denies any abdominal pain, dysuria, dizziness, headache, fever, throat pain, ear pain, cough, chest pain, shortness of air, weakness, numbness or tingling, visual changes. Patient does have some nasal congestion. Review of Systems Review of Systems GI: Denies abdominal pain.+ nausea,+ vomiting, denies bloody stools or +diarrhea [] All other systems were reviewed and found to be within normal limits, except as documented in this note. Current Medications Current Medications Current Medications Medications (Trade) Dose Ordered Sig/Elaina Start Time Stop Time Status Last Admin Dose Admin Ondansetron HCl (Zofran) 4 mg 1X ONCE 12/15/19 18:15 12/15/19 18:27 DC 12/15/19 18:34 4 MG Sodium Chloride 1,000 ml @ 1,000 mls/hr 1X ONCE 12/15/19 18:15 12/15/19 19:14 DC 12/15/19 18:34 1,000 MLS/HR Allergies Allergies Allergies Coded Allergies Type Severity Reaction Last Updated Verified iodine Allergy Intermediate swelling 11/02/15 Yes shellfish derived Allergy Intermediate swelling 11/02/15 Yes Physical Exam Physical Exam Constitutional: Well developed, well nourished, no acute distress, non-toxic appearance. [] HENT: Normocephalic, atraumatic, bilateral external ears normal, oropharynx moist, no oral exudates, nose normal. [] Eyes: PERRLA, EOMI, conjunctiva normal, no discharge. [] Neck: Normal range of motion, no tenderness, supple, no stridor. [] Cardiovascular:Heart rate regular rhythm, no murmur [] Lungs & Thorax: Bilateral breath sounds clear to auscultation [] Abdomen: Bowel sounds normal, soft, epigastric tenderness, no masses, no pulsatile masses. [] Skin: Warm, dry, no erythema, no rash. [] Back: No tenderness, no CVA tenderness. [] Extremities: No tenderness, no cyanosis, no clubbing, ROM intact, no edema. [] Neurologic: Alert and oriented X 3, normal motor function, normal sensory function, no focal deficits noted. [] Psychologic: Affect normal, judgement normal, mood normal. [] Current Patient Data Vital Signs Vital Signs Date Time Temp Pulse Resp B/P (MAP) Pulse Ox O2 Delivery O2 Flow Rate FiO2 12/15/19 17:53 97.8 60 16 148/82 (104) 98 Room Air 97.8 Lab Values Laboratory Tests Test 12/15/19 18:28 12/15/19 18:32 White Blood Count 9.5 x10^3/uL (4.0-11.0) Red Blood Count 5.44 x10^6/uL (3.50-5.40) H Hemoglobin 12.5 g/dL (12.0-15.5) Hematocrit 38.3 % (36.0-47.0) Mean Corpuscular Volume 70 fL (79-100) L Mean Corpuscular Hemoglobin 23 pg (25-35) L Mean Corpuscular Hemoglobin Concent 33 g/dL (31-37) Red Cell Distribution Width 16.9 % (11.5-14.5) H Platelet Count 296 x10^3/uL (140-400) Neutrophils (%) (Auto) 48 % (31-73) Lymphocytes (%) (Auto) 38 % (24-48) Monocytes (%) (Auto) 6 % (0-9) Eosinophils (%) (Auto) 8 % (0-3) H Basophils (%) (Auto) 0 % (0-3) Neutrophils # (Auto) 4.5 x10^3/uL (1.8-7.7) Lymphocytes # (Auto) 3.6 x10^3/uL (1.0-4.8) Monocytes # (Auto) 0.6 x10^3/uL (0.0-1.1) Eosinophils # (Auto) 0.7 x10^3/uL (0.0-0.7) Basophils # (Auto) 0.0 x10^3/uL (0.0-0.2) Platelet Estimate Adequate (ADEQUATE) Hypochromasia Slight Basophilic Stippling Present Anisocytosis Slight Microcytosis Mod Urine Collection Type Unknown Urine Color Megan Urine Clarity Clear Urine pH 6.0 Urine Specific [place] >=1.030 Urine Protein Negative mg/dL (NEG-TRACE) Urine Glucose (UA) Negative mg/dL (NEG) Urine Ketones (Stick) Negative mg/dL (NEG) Urine Blood Large (NEG) Urine Nitrite Negative (NEG) Urine Bilirubin Negative (NEG) Urine Urobilinogen Dipstick 0.2 mg/dL (0.2 mg/dL) Urine Leukocyte Esterase Negative (NEG) Urine RBC 0 /HPF (0-2) Urine WBC Occ /HPF (0-4) Urine Squamous Epithelial Cells Many /LPF Urine Amorphous Sediment Present /HPF Urine Bacteria Few /HPF (0-FEW) Urine Mucus Marked /LPF Sodium Level 141 mmol/L (136-145) Potassium Level 3.6 mmol/L (3.5-5.1) Chloride Level 105 mmol/L (98-107) Carbon Dioxide Level 27 mmol/L (21-32) Anion Gap 9 (6-14) Blood Urea Nitrogen 11 mg/dL (7-20) Creatinine 0.8 mg/dL (0.6-1.0) Estimated GFR (Cockcroft-Gault) 83.1 BUN/Creatinine Ratio 14 (6-20) Glucose Level 93 mg/dL (70-99) Calcium Level 8.8 mg/dL (8.5-10.1) Total Bilirubin 0.4 mg/dL (0.2-1.0) Aspartate Amino Transferase (AST) 13 U/L (15-37) L Alanine Aminotransferase (ALT) 45 U/L (14-59) Alkaline Phosphatase 53 U/L (46-116) Total Protein 7.3 g/dL (6.4-8.2) Albumin 3.7 g/dL (3.4-5.0) Albumin/Globulin Ratio 1.0 (1.0-1.7) Lipase 92 U/L (73-393) Influenza Type A Antigen Negative (NEGATIVE) Influenza Type B Antigen Negative (NEGATIVE) POC Urine HCG, Qualitative Hcg negative (Negative) Laboratory Tests 12/15/19 18:28 Laboratory Tests 12/15/19 18:28 EKG EKG [] Radiology/Procedures Radiology/Procedures [] Impressions: [id number] [place] [address] IMAGING REPORT Signed PATIENT: LEIGH LIZ ACCOUNT: [id number] : 1985 LOCATION: ER AGE: 34 SEX: F EXAM STATUS: REG ER ORD. PHYSICIAN: EDUARD TRINIDAD APRN REASON: UPPER ABD PAIN, VOMITING PROCEDURE: CT ABDOMEN PELVIS WO CONTRAST Exam: CT of abdomen and pelvis without contrast INDICATION: Upper abdominal pain, vomiting TECHNIQUE: Sequential axial images through the abdomen and pelvis obtained without IV contrast. Sagittal and coronal reformatted images were reconstructed from the axial data and reviewed. Comparisons: None FINDINGS: Heart size is normal. No pericardial effusion. Visualized lung bases are clear. No pleural effusion. Liver, spleen, pancreas, gallbladder and adrenals are unremarkable. No perinephric inflammation or hydronephrosis. No renal or ureteral calculi are identified. Bladder is decompressed not well evaluated. Uterus is nonenlarged. No abnormal adnexal mass. Large and small bowel are unremarkable. Appendix is normal. No free intra-abdominal air or fluid. No obstruction. Abdominal aorta has a normal course and caliber. No enlarged abdominal lymph nodes are identified. No suspicious osseous lesions or acute fractures. IMPRESSION: No acute process identified within the abdomen or pelvis. Exposure: One or more of the following in the visualized dose reduction techniques were utilized for this examination: 1. Automated exposure control 2. Adjustment of the MA and/or KV according to patient size 3. Use of iterative of reconstructive technique Electronically signed by: Maura Swift MD (12/15/2019 8:06 PM) [id number] DICTATED and SIGNED BY: MAURA SWIFT MD DATE: 12/15/192005 Course & Med Decision Making Course & Med Decision Making Pertinent Labs and Imaging studies reviewed. (See chart for details) States that she has epigastric abdominal pain due to vomiting. She states it just feels sore. Abdomen is soft and tender to epigastric area. Ambulatory with a steady gait. Skin pink warm and dry. Mucous membranes moist. Lungs are clear to auscultation all lobes. Patient does have her infant child and other toddler with her in the ED. Speaks in full clear sentences. Patient denies any blood in her vomit or stools. She denies any past medical history. Normal physical exam. Normal workup. Patient follow-up with primary care provide larissa [] Ray Disclaimer Ray Disclaimer This electronic medical record was generated, in whole or in part, using a voice recognition dictation system. Departure Departure Impression: Primary Impression: Nausea & vomiting Disposition: 01 HOME, SELF-CARE Condition: STABLE Referrals: NO PCP (PCP) Patient Instructions: Nausea and Vomiting, [id number] Additional Instructions: Follow-up with her primary care provider. Drink plenty of fluids. Take medication as prescribed. Scripts Ondansetron (ONDANSETRON ODT) 4 Mg Tab.rapdis 1 TAB PO PRN Q6-8HRS, #16 TAB Prov: EDUARD TRINIDAD APRN 12/15/19 Problem Qualifiers Primary Impression: Nausea & vomiting Vomiting type: unspecified Vomiting Intractability: non-intractable Qualified Codes: R11.2 - Nausea with vomiting, unspecified EDUARD TRINIDAD APRN Dec 15, 2019 18:10
[2019-12-15] MEDS ORDERED: IV NORMAL SALINE 1000ML BAG 1,000 ML IV ONE ×2 (18:15)
[2019-12-15] MEDS ORDERED: ONDANSETRON PF 4 MG/2 ML VIAL. IVP ONE ×2 (18:15)
[2019-12-15 18:39] LABS: BASO % 0 % (0-3); EOS # 0.7 x10^3/uL (0.0-0.7); EOS % 8 % (0-3); HEMATOCRIT 38.3 % (36.0-47.0); HEMOGLOBIN 12.5 g/dL (12.0-15.5); LYMPH # 3.6 x10^3/uL (1.0-4.8); LYMPH % 38 % (24-48); MEAN CORPUSCULAR HEMOGLOBIN 23 pg (25-35); MEAN CORPUSCULAR HGB CONC 33 g/dL (31-37); MEAN CORPUSCULAR VOLUME 70 fL (79-100); MONO # 0.6 x10^3/uL (0.0-1.1); MONO % 6 % (0-9); NEUT # 4.5 x10^3/uL (1.8-7.7); NEUT % 48 % (31-73); PLATELET COUNT 296 x10^3/uL (140-400); RED BLOOD COUNT 5.44 x10^6/uL (3.50-5.40); RED CELL DISTRIBUTION WIDTH 16.9 % (11.5-14.5); WHITE BLOOD COUNT 9.5 x10^3/uL (4.0-11.0)
[2019-12-15 18:40] LABS: BILIRUBIN,URINE NEGATIVE (NEG); CLARITY,URINE CLEAR; COLOR,URINE AMBER; NITRITE,URINE NEGATIVE (NEG); PROTEIN,URINE NEGATIVE (NEG-TRACE); UROBILINOGEN,URINE 0.2 mg/dL (0.2 mg/dL)
[2019-12-15 18:47] LABS: CALCIUM 8.8 mg/dL (8.5-10.1); CREATININE 0.8 mg/dL (0.6-1.0); GFR 83.1; POTASSIUM 3.6 mmol/L (3.5-5.1)
[2019-12-15 18:53] LABS: ALBUMIN 3.7 g/dL (3.4-5.0); TOTAL BILIRUBIN 0.4 mg/dL (0.2-1.0); TOTAL PROTEIN 7.3 g/dL (6.4-8.2)
[2019-12-15 18:54] LABS: INFLUENZA A PATIENT NEGATIVE (NEGATIVE); INFLUENZA B PATIENT NEGATIVE (NEGATIVE)
[2019-12-15 18:56] LABS: SQUAMOUS EPITHELIAL CELL,UR MANY /LPF
[2019-12-15 18:57] LABS: AMORPHOUS SEDIMENT,UR PRESENT /HPF; BACTERIA,URINE FEW /HPF (0-FEW); RBC,URINE 0 /HPF (0-2); WBC,URINE OCC /HPF (0-4)
[2019-12-15 19:20] LABS: ANISOCYTOSIS SLIGHT; HYPOCHROMIA SLIGHT; MICROCYTOSIS MOD; PLT ESTIMATE ADEQUATE (ADEQUATE)
--- NOTE | 2019-12-15 20:09 | RAD ---
Exam: CT of abdomen and pelvis without contrast INDICATION: Upper abdominal pain, vomiting TECHNIQUE: Sequential axial images through the abdomen and pelvis obtained without IV contrast. Sagittal and coronal reformatted images were reconstructed from the axial data and reviewed. Comparisons: None FINDINGS: Heart size is normal. No pericardial effusion. Visualized lung bases are clear. No pleural effusion. Liver, spleen, pancreas, gallbladder and adrenals are unremarkable. No perinephric inflammation or hydronephrosis. No renal or ureteral calculi are identified. Bladder is decompressed not well evaluated. Uterus is nonenlarged. No abnormal adnexal mass. Large and small bowel are unremarkable. Appendix is normal. No free intra-abdominal air or fluid. No obstruction. Abdominal aorta has a normal course and caliber. No enlarged abdominal lymph nodes are identified. No suspicious osseous lesions or acute fractures. IMPRESSION: No acute process identified within the abdomen or pelvis. Exposure: One or more of the following in the visualized dose reduction techniques were utilized for this examination: 1. Automated exposure control 2. Adjustment of the MA and/or KV according to patient size 3. Use of iterative of reconstructive technique Electronically signed by: Maura Jurado MD (12/15/2019 8:06 PM) [id number]
[2019-12-15] MEDS ORDERED: ONDA4TAB12 PO (20:13)
[2019-12-15 20:31] VITALS: BP 140/69
== END 2019-12-15 20:46 | disposition home or self-care (01) ==
LOC: ER 17:24
DX: R11.2 Nausea with vomiting, unspecified (principal); R19.7 Diarrhea, unspecified; R09.81 Nasal congestion; R10.13 Epigastric pain; F41.9 Anxiety disorder, unspecified; J45.909 Unspecified asthma, uncomplicated; F32.9 Major depressive disorder, single episode, unspecified; I10 Essential (primary) hypertension; Z90.89 Acquired absence of other organs; Z98.890 Other specified postprocedural states; Z87.891 Personal history of nicotine dependence; Z88.1 Allergy status to other antibiotic agents; Z91.013 Allergy to seafood
CPT/HCPCS: 36415; 74176; 80053; 81001; 81025; 83690; 85025; 87804; 96361; 96374; 99285; J2405; J7030

== ENCOUNTER 2020-12-10 08:53 | Emergency (ER) | payer MEDICAID ==
[~2020-12-10] VITALS: Ht 170.2 cm; Wt 131.0 kg
[~2020-12-10 08:53] MED LIST changes: +ONDA4TAB12 PO
[2020-12-10 08:57] VITALS: BP 140/69
--- NOTE | 2020-12-10 09:14 | ED.ADGEN ---
Past Medical History Past Medical History: Anxiety, Asthma, Bipolar, Depression, Hypertension Additional Past Medical Histor: GESTATIONAL HTN, "CANCER IN LEFT EYE" Past Surgical History: , Tonsillectomy Additional Past Surgical Histo: HIP SURG X 2, FINGER SURG, LEFT FOOT X 2 Smoking Status: Former Smoker Alcohol Use: None Drug Use: None General Adult EDM: Chief Complaint: HEARTBURN/GI DISTRESS HPI: HPI: Patient is a 35-year-old female who arrives ambulatory to the emergency department complaining of chest pain which she describes as burning in nature. Patient states this began yesterday after eating and states the pain is not subsided. Patient described a sensation of nausea as well as something being stuck in her chest. Patient states she has had problems with reflux previously however nothing like this. The patient states she is also 28 weeks with twins and wonders what this may be contributing to her course. She denies any history of previous illness. She further denies any shortness of air, diaphoresis or cough. Additionally she denies any problems with her . She is awake, alert and nontoxic-appearing. Review of Systems: Review of Systems: Constitutional: Reports her . Denies fever or chills. [] Eyes: Denies change in visual acuity. [] HENT: Denies nasal congestion or sore throat. [] Respiratory: Denies cough or shortness of breath. [] Cardiovascular: Reports to chest pain. Denies edema. [] GI: Reports to nausea. Denies abdominal pain, vomiting, bloody stools or diarrhea. [] : Denies dysuria. [] Musculoskeletal: Denies back pain or joint pain. [] Integument: Denies rash. [] Neurologic: Denies headache, focal weakness or sensory changes. [] Endocrine: Denies polyuria or polydipsia. [] Lymphatic: Denies swollen glands. [] Psychiatric: Denies depression or anxiety. [] Allergies: Allergies: Allergies Coded Allergies Type Severity Reaction Last Updated Verified iodine Allergy Intermediate swelling 11/02/15 Yes shellfish derived Allergy Intermediate swelling 11/02/15 Yes Physical Exam: PE: Constitutional: Well developed, well nourished, no acute distress, non-toxic appearance. [] HENT: Normocephalic, atraumatic, bilateral external ears normal, oropharynx moist, no oral exudates, nose normal. [] Eyes: PERRLA, EOMI, conjunctiva normal, no discharge. [] Neck: Normal range of motion, no tenderness, supple, no stridor. [] Cardiovascular: Heart rate regular rhythm, no murmur [] Lungs & Thorax: Bilateral breath sounds clear to auscultation [] Abdomen: Bowel sounds normal, soft, no tenderness, no masses, no pulsatile masses. [] Skin: Warm, dry, no erythema, no rash. [] Back: No tenderness, no CVA tenderness. [] Extremities: No tenderness, no cyanosis, no clubbing, ROM intact, no edema. [] Neurologic: Alert and oriented X 3, normal motor function, normal sensory function, no focal deficits noted. [] Psychologic: Affect normal, judgement normal, mood normal. [] Current Patient Data: Labs: Laboratory Tests Test 12/10/20 09:11 12/10/20 09:20 POC Urine HCG, Qualitative Hcg positive (Negative) Troponin I Quantitative < 0.017 ng/mL (0.000-0.055) Vital Signs: Vital Signs Date Time Temp Pulse Resp B/P (MAP) Pulse Ox O2 Delivery O2 Flow Rate FiO2 12/10/20 08:57 98.7 106 18 140/69 (92) 98 Room Air 98.7 EKG: EKG: [] Heart Score: Risk Factors: Risk Factors: DM, Current or recent (<one month) smoker, HTN, HLP, family history of CAD, obesity. Risk Scores: Score 0 - 3: 2.5% MACE over next 6 weeks - Discharge Home Score 4 - 6: 20.3% MACE over next 6 weeks - Admit for Clinical Observation Score 7 - 10: 72.7% MACE over next 6 weeks - Early Invasive Strategies Radiology/Procedures: Radiology/Procedures: [] Impression: EKG was obtained at 9:17 AM. EKG revealed a normal sinus rhythm with a ventricular rate of 85 bpm. There does appear to be T wave inversion in lead III. Otherwise there are no acute ST/T wave elevations to denote ischemia. Course & Med Decision Making: Course & Med Decision Making Pertinent Labs and Imaging studies reviewed. (See chart for details) The patient remains awake, alert and in no acute distress. EKG does not show anything acute from an ischemic standpoint and the patient's troponin is within normal limits. Given this information I do not believe the patient's symptoms are cardiac in nature. Rather I do believe they are more related to diet. Additionally with the patient being 28 weeks and obese, she is at risk for reflux/GERD. I have advised that she consider follow-up with a GI physician of her choice should she have continued symptoms. 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 Should she have any changes in her condition such as headache, vomiting or any neurological changes I advised she return. The patient understands and has agreed to do so. She is nontoxic-appearing neurological intact. She stable for discharge. Ray Disclaimer: Ray Disclaimer: This electronic medical record was generated, in whole or in part, using a voice recognition dictation system. Departure Departure Impression: Primary Impression: Atypical chest pain Additional Impression: Acid reflux Disposition: 01 DC HOME SELF CARE/HOMELESS Condition: GOOD Referrals: UNKNOWN PCP NAME (PCP) Patient Instructions: Diet for Gastroesophageal Reflux Disease, Adult, Diet for Gastroesophageal Reflux Disease, Child, [id number] Scripts Famotidine (PEPCID) 20 Mg Tablet 20 MG PO BID for 15 Days, #30 TAB Prov: LIBRA GILLETTE DO 12/10/20 Problem Qualifiers LIBRA GILLETTE DO Dec 10, 2020 09:14
--- NOTE | 2020-12-10 10:00 | EKG ---
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
[2020-12-10] MEDS ORDERED: FAMO-63 PO (10:06)
== END 2020-12-10 10:24 | disposition home or self-care (01) ==
LOC: ER 08:53
DX: O26.893 Other specified pregnancy related conditions, third trimester (principal); R07.89 Other chest pain; O99.612 Diseases of the digestive system complicating pregnancy, second trimester; K21.9 Gastro-esophageal reflux disease without esophagitis; O16.3 Unspecified maternal hypertension, third trimester; O99.343 Other mental disorders complicating pregnancy, third trimester; F31.9 Bipolar disorder, unspecified; O99.513 Diseases of the respiratory system complicating pregnancy, third trimester; J45.909 Unspecified asthma, uncomplicated; Z3A.28 28 weeks gestation of pregnancy; Z87.891 Personal history of nicotine dependence; Z91.013 Allergy to seafood; Z88.8 Allergy status to other drugs, medicaments and biological substances
CPT/HCPCS: 36415; 81025; 84484; 93005; 99283; 99284

== ENCOUNTER 2021-01-15 12:34 | Observation (INO) | payer MEDICAID ==
[~2021-01-15 12:34] MED LIST changes: +FAMO-63 PO
[2021-01-15] MEDS ORDERED: IV RINGERS,LACTATED 1000ML 1,000 ML IV SCH (13:00)
[2021-01-15 13:20] LABS: BILIRUBIN,URINE NEGATIVE (NEG); CLARITY,URINE CLEAR; COLOR,URINE YELLOW; NITRITE,URINE NEGATIVE (NEG); PROTEIN,URINE NEGATIVE (NEG-TRACE); UROBILINOGEN,URINE 0.2 mg/dL (0.2 mg/dL)
[2021-01-15 13:29] LABS: BARBITURATES NEG (NEG); BENZODIAZEPINES NEG (NEG); CANNABINOIDS NEG (NEG); COCAINE NEG (NEG); METHADONE NEG (NEG); OPIATES NEG (NEG); PHENCYCLIDINE NEG (NEG)
[2021-01-15 13:30] LABS: AMPHETAMINE/METHAMPHETAMINE NEG (NEG); BACTERIA,URINE 0 /HPF (0-FEW); RBC,URINE 0 /HPF (0-2)
== END 2021-01-15 14:55 | disposition home or self-care (01) ==
LOC: 3 SO LND 12:34
PROVIDERS: ADMIT Obstetrics & Gynecology; ATTEND Obstetrics & Gynecology
DX: O30.003 Twin pregnancy, unspecified number of placenta and unspecified number of amniotic sacs, third trimester (principal); O26.893 Other specified pregnancy related conditions, third trimester; R10.2 Pelvic and perineal pain; Z3A.33 33 weeks gestation of pregnancy; Z98.891 History of uterine scar from previous surgery; Z79.899 Other long term (current) drug therapy
CPT/HCPCS: 59025; 80307; 81001; 87086; G0378; G0379

== ENCOUNTER 2021-10-06 09:41 | Emergency (ER) | payer SELFPAY | END 2021-10-06 10:13 | disposition left against medical advice (07) | LOC: ER 09:41 | DX: R05.9 Cough, unspecified (principal); J02.9 Acute pharyngitis, unspecified; R09.89 Other specified symptoms and signs involving the circulatory and respiratory systems; Z53.21 Procedure and treatment not carried out due to patient leaving prior to being seen by health care provider ==